=== PATIENT | female | born 1970 ===

== ENCOUNTER 2018-05-16 11:56 | Emergency (ER) | payer BC ==
[2018-05-16 12:04] VITALS: TEMP 97.7
[2018-05-16] MEDS ORDERED: Sodium Chloride 0.9% 1,000 ML IV ONE (12:17)
--- NOTE | 2018-05-16 12:24 | C.PDOC ---
History Of Present Illness 48 y/o female pt with hx of HTN presents to the ER c/o sudden onset of dizziness today when turning head suddenly today. Associated sx includes nausea, headache. NO visual changes, no loc, no fever, no chills. Pt reports she had similar sx x3 weeks ago but it subsided on its own. Pt denies LOC, chest pain and SOB. Time Seen by Provider: 05/16/18 12:10 Chief Complaint (Nursing): Dizziness/Lightheaded History Per: Patient History/Exam Limitations: no limitations Onset/Duration Of Symptoms: Hrs, Sudden Onset Current Symptoms Are (Timing): Still Present Past Medical History Reviewed: Historical Data, Nursing Documentation, Vital Signs Vital Signs: Last Vital Signs Temp 97.7 F 05/16/18 11:59 Pulse 83 05/16/18 11:59 Resp 18 05/16/18 11:59 BP 144/84 05/16/18 11:59 Pulse Ox 97 05/16/18 11:59 - Medical History PMH: HTN, Hypercholesterolemia, Hyperlipidemia Surgical History: Appendectomy - [facility] Procedures INJECT/INFUSE NEC (08/12/14) Family History: States: No Known Family Hx - Social History Hx Alcohol Use: No Hx Substance Use: No - Immunization History Hx Tetanus Toxoid Vaccination: No Hx Influenza Vaccination: Yes Hx Pneumococcal Vaccination: No Review Of Systems Except As Marked, All Systems Reviewed And Found Negative. Gastrointestinal: Positive for: Nausea Neurological: Positive for: Dizziness Physical Exam - Physical Exam Appears: Non-toxic, No Acute Distress Skin: Normal Color, Warm, Dry Head: Atraumatic, Normacephalic Eye(s): bilateral: Normal Inspection, PERRL, EOMI Ear(s): Bilateral: Normal Nose: Normal Oral Mucosa: Moist Chest: Symmetrical Cardiovascular: Rhythm Regular, No Murmur Respiratory: Normal Breath Sounds, No Rales, No Rhonchi, No Wheezing Gastrointestinal/Abdominal: Soft, No Tenderness Extremity: Bilateral: Atraumatic, Normal Color And Temperature, Normal ROM Neurological/Psych: Oriented x3, Normal Speech ED Course And Treatment - Laboratory Results Result Diagrams: 05/16/18 12:24 05/16/18 12:24 ECG: Interpreted By Me, Viewed By Me ECG Rhythm: Sinus Rhythm, Nonspecific Changes ECG Interpretation: Normal, No Acute Changes Interpretation Of ECG: normal axis, normal intervals. Rate From EC O2 Sat by Pulse Oximetry: 97 (RA) Pulse Ox Interpretation: Normal - CT Scan/US head CT Other Rad Studies (CT/US): Read By Radiologist, Radiology Report Reviewed CT/US Interpretation: Accession No. : [id number]. Patient Name / ID : LISSA ABREU / [id number]. Exam Date : 05/16/2018 12:45:18 ( Approved ). Study Comment : Sex / Age : F / 48Y. Creator : Maggie Hoang MD. Dictator : Maggie Hoang MD. Cmo & President : [facility] Nursing Director : Lenora Hoang MD. Approver2 : Report Date : 05/16/2018 12:59:52. My Comment : . Date of service: 05/16/2018. PROCEDURE: CT HEAD WITHOUT CONTRAST. HISTORY: dizziness. COMPARISON: Images from noncontrast head CT performed 10/17/11. TECHNIQUE: Axial computed tomography images were obtained through the head/brain without intravenous contrast. Radiation dose: Total exam DLP = 1115.6 mGy-cm. This CT exam was performed using one or more of the following dose reduction techniques: Automated exposure control, adjustment of the mA and/or kV according to patient size, and/or use of iterative reconstruction technique. FINDINGS: HEMORRHAGE: No intracranial hemorrhage. BRAIN: No mass effect or edema. The prakash-white matter differentiation appears intact. Please note that MRI with diffusion imaging is more sensitive in the detection of acute ischemic event. VENTRICLES: No hydrocephalus. CALVARIUM: Unremarkable. PARANASAL SINUSES: Unremarkable as visualized. No significant inflammatory changes. MASTOID AIR CELLS: Unremarkable as visualized. No inflammatory changes. OTHER FINDINGS: None. IMPRESSION: No acute intracranial pathology identified. Medical Decision Making Medical Decision Making: Impression: dizziness Plans: -- CT head -- EKG -- chem labs -- Blood work -- Antivert -- Sudafed -- IV fluids -- Tylenol -- Zofran -- POC urine -- UA 1335 - patient states improvement, ambulating in ED without limitations. No further dizziness. Will discharge home to follow up with pmd within 2 days. Disposition - Disposition Disposition: HOME/ ROUTINE Disposition Time: 13:35 Condition: STABLE Additional Instructions: follow up with your doctor within 2 days call to make an appointment take medication as prescribed return to ER if symptoms worsens or progress Prescriptions: RX: Meclizine [Meclizine*] 25 mg PO TID PRN #15 tab PRN Reason: Dizziness Ondansetron ODT [Zofran ODT] 4 mg PO TID PRN #12 odt PRN Reason: Nausea/Vomiting Pseudoephedrine HCl [Sudafed] 30 mg PO TID PRN #15 tablet PRN Reason: Dizziness Instructions: Vertigo (a Type of Dizziness) Forms: [facility] (Kazakh), General Discharge Instructions - Clinical Impression Clinical Impression: Dizziness - Scribe Statement The provider has reviewed the documentation as recorded by the Rut Rahman Do Provider Attestation: All medical record entries made by the Joseibe were at my direction and personally dictated by me. I have reviewed the chart and agree that the record accurately reflects my personal performance of the history, physical exam, medical decision making, and the department course for this patient. I have also personally directed, reviewed, and agree with the discharge instructions and disposition.
[2018-05-16] MEDS ORDERED: Sodium Chloride 0.9% 1,000 ML ONE (12:30)
[2018-05-16 12:31] LABS: BASO # 0.1 K/uL (0.0-0.2); BASO % 0.7 % (0.0-2.0); EOS % 0.3 % (0.0-4.0); HEMOGLOBIN 12.3 g/dL (11.0-16.0); LYMPH # 1.2 K/uL (1.0-4.3); LYMPH % 15.5 % (20.0-40.0); MEAN CELL VOLUME 90.5 fL (81.0-99.0); MEAN CORPUSCULAR HGB CONC 34.2 g/dL (33.0-37.0); MEAN PLATELET VOLUME 11.4 fL (7.2-11.7); MONO # 0.3 K/uL (0.0-0.8); MONO % 4.1 % (0.0-10.0); NEUT # 6.3 K/uL (1.8-7.0); NEUT % 79.4 % (50.0-75.0); NRBC % 0.1 % (0.0-2.0); RBC 3.97 Mil/uL (3.80-5.20); RED CELL DISTRIBUTION WIDTH 13.9 % (11.5-14.5)
[2018-05-16 12:44] LABS: ALB/GLOB RATIO 1.4 (1.0-2.1); ALBUMIN 4.4 g/dL (3.5-5.0); ALT/SGPT 50 U/L (9-52); AST/SGOT 38 U/L (14-36); BLOOD UREA NITROGEN 18 mg/dL (7-17); CALCIUM 9.2 mg/dl (8.6-10.4); GFR NON-AFRICAN AMERICAN > 60
[2018-05-16 12:47] LABS: SQUAMOUS EPITHIAL 1 /hpf (0-5); URINE BILIRUBIN NEGATIVE (NEGATIVE); URINE BLOOD NEGATIVE (NEGATIVE); URINE CLARITY Clear (Clear); URINE COLOR Yellow (YELLOW); URINE GLUCOSE (UA) NORMAL (Normal); URINE LEUKOCYTE ESTERASE NEG Leu/uL (Negative); URINE PROTEIN NEGATIVE (NEGATIVE); URINE UROBILINOGEN NORMAL mg/dL (0.2-1.0)
--- NOTE | 2018-05-16 13:00 | CT ---
Date of service: 05/16/2018 PROCEDURE: CT HEAD WITHOUT CONTRAST. HISTORY: dizziness COMPARISON: Images from noncontrast head CT performed 10/17/11. TECHNIQUE: Axial computed tomography images were obtained through the head/brain without intravenous contrast. Radiation dose: Total exam DLP = 1115.6 mGy-cm. This CT exam was performed using one or more of the following dose reduction techniques: Automated exposure control, adjustment of the mA and/or kV according to patient size, and/or use of iterative reconstruction technique. FINDINGS: HEMORRHAGE: No intracranial hemorrhage. BRAIN: No mass effect or edema. The prakash-white matter differentiation appears intact. Please note that MRI with diffusion imaging is more sensitive in the detection of acute ischemic event. VENTRICLES: No hydrocephalus. CALVARIUM: Unremarkable. PARANASAL SINUSES: Unremarkable as visualized. No significant inflammatory changes. MASTOID AIR CELLS: Unremarkable as visualized. No inflammatory changes. OTHER FINDINGS: None. IMPRESSION: No acute intracranial pathology identified.
[2018-05-16 14:09] VITALS: BP 163/100; PULSE 75; RESP 16
[2018-05-16 16:03] VITALS: O2SAT 97
--- NOTE | 2018-05-17 12:00 | CARD ---
APPROVED REPORT Date of service: 05/16/2018 EKG Measurement Heart [id number] <Conclusion> Normal sinus rhythm Possible Left atrial enlargement Borderline ECG
== END 2018-05-16 14:08 | disposition home or self-care (01) ==
LOC: C.ER 11:56
DX: R42 Dizziness and giddiness (principal); I10 Essential (primary) hypertension; E78.00 Pure hypercholesterolemia, unspecified
CPT/HCPCS: 70450; 80053; 81001; 82948; 84484; 85025; 93005; 96374; 99285; J2405; J7030

== ENCOUNTER 2018-06-04 08:44 | Emergency (ER) | payer BC ==
[2018-06-04 08:57] VITALS: RESP 20; TEMP 98.1
[2018-06-04 09:51] LABS: BASO # 0.1 K/uL (0.0-0.2); BASO % 0.7 % (0.0-2.0); EOS % 0.5 % (0.0-4.0); LYMPH # 1.3 K/uL (1.0-4.3); LYMPH % 13.4 % (20.0-40.0); MEAN CELL VOLUME 90.2 fL (81.0-99.0); MEAN CORPUSCULAR HEMOGLOBIN 30.5 pg (27.0-31.0); MEAN CORPUSCULAR HGB CONC 33.8 g/dL (33.0-37.0); MEAN PLATELET VOLUME 11.7 fL (7.2-11.7); MONO # 0.4 K/uL (0.0-0.8); MONO % 4.4 % (0.0-10.0); NEUT # 7.8 K/uL (1.8-7.0); NRBC % 0.2 % (0.0-2.0); RBC 4.25 Mil/uL (3.80-5.20); RED CELL DISTRIBUTION WIDTH 13.9 % (11.5-14.5); WHITE BLOOD COUNT 9.6 K/uL (4.8-10.8)
[2018-06-04 09:57] LABS: SQUAMOUS EPITHIAL 52 /hpf (0-5); URINE BACTERIA OCC (<OCC); URINE BILIRUBIN NEGATIVE (NEGATIVE); URINE BLOOD 1+ (NEGATIVE); URINE CLARITY Hazy (Clear); URINE COLOR Amber (YELLOW); URINE GLUCOSE (UA) NORMAL (Normal); URINE LEUKOCYTE ESTERASE NEG Leu/uL (Negative); URINE PROTEIN 2+ mg/dL (NEGATIVE)
[2018-06-04 10:13] LABS: ALB/GLOB RATIO 1.5 (1.0-2.1); ALBUMIN 4.8 g/dL (3.5-5.0); ALT/SGPT 46 U/L (9-52); AST/SGOT 28 U/L (14-36); BLOOD UREA NITROGEN 11 mg/dL (7-17); GFR NON-AFRICAN AMERICAN > 60
--- NOTE | 2018-06-04 10:15 | RAD ---
HISTORY: abd pain COMPARISON: None available TECHNIQUE: Chest PA and lateral FINDINGS: Examination limited by habitus and hypoinflation. LUNGS: No focal consolidation. Please note that chest x-ray has limited sensitivity for the detection of pulmonary masses. PLEURA: No significant pleural effusion identified. No definite pneumothorax . CARDIOVASCULAR: Heart size appears within normal limits. Ectatic aorta. OSSEOUS STRUCTURES: No acute osseous abnormality identified. VISUALIZED UPPER ABDOMEN: Unremarkable. OTHER FINDINGS: None. IMPRESSION: No focal consolidation.
--- NOTE | 2018-06-04 10:38 | C.PDOC ---
History Of Present Illness 48 y/o female presents to the ED complaining of diffuse bodyaches, nasal congestion, and fatigue for 2 days. States she took Tylenol. Patient admits to having fatigue and muscle aches for a few months without any improvement taking Tylenol. Patient was seen in the ED 3 weeks ago for same complaint, has yet to follow up with PMD. She also reports mild cough. Denies any fever, chills, SOB, or chest pain. HPI: Influenza Time Seen by Provider: 06/04/18 09:11 Chief Complaint: Flu-like Symptoms Chief Complaint (Provider): Muscle aches, fatigue History Per: Patient Exam Limitations: no limitations Onset/Duration Of Symptoms: Days Symptoms include: bodyaches, cough, nasal congestion Sick Contacts (Context): None Past Medical History Reviewed: Historical Data, Nursing Documentation, Vital Signs Vital Signs: Last Vital Signs Temp 98.1 F 06/04/18 08:50 Pulse 92 H 06/04/18 08:50 Resp 20 06/04/18 08:50 BP 131/78 06/04/18 08:50 Pulse Ox 98 06/04/18 08:50 - Medical History PMH: HTN, Hypercholesterolemia, Hyperlipidemia Surgical History: Appendectomy - [facility] Procedures INJECT/INFUSE NEC (08/12/14) Family History: States: No Known Family Hx - Social History Hx Alcohol Use: No Hx Substance Use: No - Immunization History Hx Tetanus Toxoid Vaccination: No Hx Influenza Vaccination: Yes (2018) Hx Pneumococcal Vaccination: No Review Of Systems Except As Marked, All Systems Reviewed And Found Negative. Constitutional: Positive for: Malaise, Other (Muscle aches, diffuse). Negative for: Fever, Chills ENT: Positive for: Nose Congestion Cardiovascular: Negative for: Chest Pain Respiratory: Positive for: Cough. Negative for: Shortness of Breath, Sputum Physical Exam - Physical Exam Appears: Non-toxic, No Acute Distress Skin: Warm, Dry Head: Atraumatic, Normacephalic Eye(s): bilateral: Normal Inspection Oral Mucosa: Moist Throat: Normal, No Erythema, No Exudate Neck: Normal ROM, Supple Chest: Symmetrical Cardiovascular: Rhythm Regular, No Murmur Respiratory: Normal Breath Sounds, No Rales, No Rhonchi, No Wheezing Extremity: Bilateral: Atraumatic, Normal Color And Temperature, Normal ROM Neurological/Psych: Oriented x3, Normal Speech, Other (No focal deficits) Medical Decision Making Medical Decision Making: Impression: Myalgia, Fatigue, Cough, r/o flu, r/o thyroid disease Plan: --Labs ordered including TSH level --Flu swab sent --Pending CXR --Pain managed with 30 mg IV Toradol Labs reviewed, TSH is wnl. Flu negative. No acute abnormalities. Discussed results and likely diagnosis with patient. Impression: Myalgia, Fatigue Patient counseled regarding the importance of follow up, advised to see PMD or the clinic within 2 days. - Laboratory Results Result Diagrams: 06/04/18 09:48 06/04/18 09:48 Lab Results: Total Bilirubin 1.1 mg/dL (0.2-1.3) 06/04/18 09:48 AST 28 U/L (14-36) 06/04/18 09:48 ALT 46 U/L (9-52) 06/04/18 09:48 Alkaline Phosphatase 94 U/L (38-126) 06/04/18 09:48 Total Protein 8.0 g/dL (6.3-8.3) 06/04/18 09:48 Albumin 4.8 g/dL (3.5-5.0) 06/04/18 09:48 Globulin 3.3 gm/dL (2.2-3.9) 06/04/18 09:48 Albumin/Globulin Ratio 1.5 (1.0-2.1) 06/04/18 09:48 Urine Color Andreina (YELLOW) 06/04/18 09:48 Urine Clarity Hazy (Clear) 06/04/18 09:48 Urine pH 5.0 (5.0-8.0) 06/04/18 09:48 Ur Specific [place] 1.031 (1.003-1.030) H 06/04/18 09:48 Urine Protein 2+ mg/dL (NEGATIVE) H 06/04/18 09:48 Urine Glucose (UA) Normal mg/dL (Normal) 06/04/18 09:48 Urine Ketones Negative mg/dL (NEGATIVE) 06/04/18 09:48 Urine Blood 1+ (NEGATIVE) H 06/04/18 09:48 Urine Nitrate Negative (NEGATIVE) 06/04/18 09:48 Urine Bilirubin Negative (NEGATIVE) 06/04/18 09:48 Urine Urobilinogen 4.0 mg/dL (0.2-1.0) H 06/04/18 09:48 Ur Leukocyte Esterase Neg Sara/uL (Negative) 06/04/18 09:48 Urine WBC (Auto) 5 /hpf (0-5) 06/04/18 09:48 Urine RBC (Auto) 10 /hpf (0-3) H 06/04/18 09:48 Ur Squamous Epith Cells 52 /hpf (0-5) H 06/04/18 09:48 Urine Bacteria Occ (<OCC) H 06/04/18 09:48 - ECG O2 Sat by Pulse Oximetry: 98 (RA) Pulse Ox Interpretation: Normal - Radiology X-Ray: Interpreted by Me, Viewed By Me X-Ray Interpretation: No Acute Disease Disposition - Disposition Referrals: [facility] [Outside] Disposition: HOME/ ROUTINE Disposition Time: 10:36 Condition: STABLE Additional Instructions: follow up with your doctor within 2 days call to make an appointment take medications as prescribed return to ER if symptoms worsens or progress Prescriptions: Naproxen [Naprosyn] 500 mg PO BID PRN #16 tab PRN Reason: Pain, Moderate (4-7) Instructions: Fatigue (DC), Muscle and Bone Pain (DC), Generalized Weakness Forms: General Discharge Instructions, [facility] (Kiswahili), Work Excuse - Clinical Impression Clinical Impression: Fatigue, Muscle ache - Scribe Statement The provider has reviewed the documentation as recorded by the Rut Marlow Provider Attestation: All medical record entries made by the Joseibkari were at my direction and personally dictated by me. I have reviewed the chart and agree that the record accurately reflects my personal performance of the history, physical exam, medical decision making, and the department course for this patient. I have also personally directed, reviewed, and agree with the discharge instructions and disposition.
[2018-06-04 10:44] VITALS: BP 146/87; PULSE 76
[2018-06-04 10:47] VITALS: O2SAT 98
== END 2018-06-04 10:50 | disposition home or self-care (01) ==
LOC: C.ER 08:44
DX: M79.10 Myalgia, unspecified site (principal); R53.83 Other fatigue; I10 Essential (primary) hypertension; E78.00 Pure hypercholesterolemia, unspecified; E78.5 Hyperlipidemia, unspecified
CPT/HCPCS: 71046; 80053; 81001; 82550; 83735; 84443; 85025; 87804; 96374; 99283; J1885